=== PATIENT | male | born 1970 ===

== ENCOUNTER → 2022-05-21 | Day surgery (SDC) | payer OTHER ==
[~2022-05-21] VITALS: Ht 175.3 cm; Wt 111.1 kg
[~2022-05-21] MED LIST: 3IN1 COMMODE; ASCORBIC ACID500 MG PO; ASPIRIN81 MG PO; CENTRUM COMPLE1 EACH PO; CLARITIN10 MG PO; HCTZ12.5 MG PO; LISINOPRIL 10MG10 MG PO; PERCOCET 5-3251 EACH PO; PRAVACHOL20 MG PO; PRILOSEC20 MG PO; VITAMIN D325 MC2 PO; ZINC50 MG PO
[2022-05-21 10:13] LABS: HCT 43.3 % (42.0-52.0); HGB 14.6 g/dl (13.2-18.0); MCH 27.9 pg (25.0-31.0); MCHC 33.7 g/dL (32.0-36.0); MCV 82.8 fL (78.0-100.0); MPV 9.5 fL (6.0-9.5); RBC 5.23 M/uL (4.70-6.00); RDW 12.8 % (11.5-14.0); WBC 6.3 K/uL (4.0-10.5)
[2022-05-21 10:31] LABS: BUN/CREAT RATIO (CALC) 10.4 RATIO; CREATININE 1.25 mg/dL (0.67-1.17)
== END | disposition home or self-care (01) ==
LOC: FAS 08:55
PROVIDERS: Anesthesiology; Surgery
DX: K64.8 Other hemorrhoids (principal); K64.4 Residual hemorrhoidal skin tags; K21.9 Gastro-esophageal reflux disease without esophagitis; I10 Essential (primary) hypertension; E78.00 Pure hypercholesterolemia, unspecified; Z88.8 Allergy status to other drugs, medicaments and biological substances; G47.33 Obstructive sleep apnea (adult) (pediatric)
CPT/HCPCS: 36415; 80048; 93005; J0694; J1100; J2250; J2405; J2704; J3010; J7120